=== PATIENT | male | born 1990 | race Caucasian/White ===

== ENCOUNTER 2017-12-13 09:48 | Emergency (ER) | payer OTHER, SELFPAY ==
[2017-12-13 10:01] VITALS: BP 122/88; PULSE 63; RESP 13; TEMP 36.6; O2SAT 99
[2017-12-13 11:06] VITALS: BP 126/96; PULSE 64; RESP 16; TEMP 36.6; O2SAT 100
--- NOTE | 2017-12-13 11:33 | ED.SKABFB ---
HPI - Skin/Abscess/Foreign Bdy General Chief complaint: Skin/Abscess/Foreign Body Stated complaint: PAINFUL CYST LT EAR Time Seen by Provider: 12/13/17 10:00 Source: patient and family Mode of arrival: ambulatory Limitations: no limitations History of Present Illness HPI narrative: 27-year-old otherwise healthy male presents with a chief complaint of a painful cyst just anterior to his left ear which has been present approximately 1 year. 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 Onset (ago): year(s) Tetanus up to date: yes Location: face Severity: mild Review of Systems Review of Systems All systems reviewed & are unremarkable except as noted in HPI and below Constitutional Denies chills, Denies fever(s), Denies lethargy and Denies weakness Eyes Denies change in vision, Denies eye discharge, Denies irritation and Denies loss of vision ENT Ears, Nose, Mouth, and Throat: Denies change in voice, Denies neck pain and Denies sore throat Cardiovascular Denies chest pain, Denies irregular heart rhythm, Denies lightheadedness, Denies palpitations, Denies dyspnea, Denies dyspnea on exertion and Denies orthopnea Respiratory Denies cough, Denies dyspnea, Denies dyspnea on exertion and Denies wheezing Gastrointestinal Gastrointestinal: Denies abdominal pain, Denies change in bowel habits, Denies diarrhea, Denies nausea and Denies vomiting Genitourinary Denies hematuria, Denies flank pain, Denies urinary incontinence and Denies urinary urgency Musculoskeletal Denies neck pain Integumentary/Breasts Denies pruritus, Reports erythema, Denies rash, Reports skin pain, Reports skin swelling and Denies wounds Neurologic Denies confusion, Denies loss of vision and Denies weakness Psychiatric Denies anxiety, Denies confusion, Denies depression, Denies homicidal ideation and Denies suicidal ideation Endocrine Denies palpitations Hematologic/Lymphatic Denies easy bruising Allergic/Immunologic Denies wheezing Exam Narrative Exam Narrative: GEN: AOx3 and in mild distress EYES: Pupils are equal, round, and reactive to light and accommodation. Extraoccular muscles are intact bilaterally. There is no subconjunctival hemorrhage or exudate. CHEST: Lungs are clear to auscultation bilaterally and free of wheezes, rales, or rhonchi. Heart rate is regular rhythm, there are no murmurs, clicks, rubs, or gallops. There is no chest wall tenderness. ABD: Abdomen is soft and nontender. There is no guarding or rebound. Bowel sounds are normal in all 4 quadrants. There is no mass or organomegaly. EXT: Full painless ROM of all extremities with no loss of sensation or strength. SKIN: Mildly tender inflamed sebaceous cyst just anterior to left ear. Minimal fluctuance no surrounding cellulitis Initial Vital Signs Initial Vital Signs: Vital Signs Temperature 97.9 F 12/13/17 10:01 Pulse Rate 63 12/13/17 10:01 Respiratory Rate 13 12/13/17 10:01 Blood Pressure 122/88 H 12/13/17 10:01 Pulse Oximetry 99 12/13/17 10:01 Procedures Abscess I/D Site: face Side (if applicable): left Local Anesthetic: lidocaine 1% and with bicarb Amount of anesthesia used (mL): 5 Technique: incised with #11 blade and other Amount of fluid expressed (mL): 10 Irrigation: No Packing used?: none Complications: other Course Vital Signs - 8 hr 12/13/17 10:01 12/13/17 11:06 Temperature 97.9 F 97.9 F Pulse Rate 63 64 Respiratory Rate 13 16 Blood Pressure 122/88 H Blood Pressure [Left Arm] 126/96 H Pulse Oximetry 99 100 Discharge Plan Departure Patient Disposition: Home, Self-Care Clinical Impression: Sebaceous cyst of ear Discharge Date/Time: 12/13/17 11:54 Interventions: ED Discharge Assessment Last Done: 12/13/17 11:54 Instructions: DI for Epidermal Cyst Activity Restrictions/Additional Instructions: *You have been diagnosed with [ sebaceous cyst left ear ] *What to do: *Follow up with your flight surgeon as soon as you can, certainly within 2-3 days or before you fly next, call for an appointment. Let them know you were seen in the Emergency Department and that we ask that you be seen in follow up *Return to ER if you should have any new, worsening or concerning symptoms
--- NOTE | 2017-12-13 11:37 | PC.NURSE ---
Dr. Jay in to open and drain. Large amount of sebacious material out. Minimal bleeding. No pus/ or s/s of infection noted. Covered w/ 2x2. Given dressing supplies for home use.
== END 2017-12-13 11:54 | disposition home or self-care (01) ==
PROVIDERS: Emergency Provider Emergency Medicine
DX: L72.3 Sebaceous cyst (principal)
CPT/HCPCS: 10060; 99282